=== PATIENT | male | born 1930 | race Two or more races ===

== ENCOUNTER 2017-02-05 14:30 | Outpatient (CLI) | payer MEDICARE | END 2017-02-05 23:59 | disposition home health service (06) | LOC: WOU 14:30 | PROVIDERS: ATTEND Surgery | DX: L89.314 Pressure ulcer of right buttock, stage 4 (principal); D64.9 Anemia, unspecified; I48.91 Unspecified atrial fibrillation; Z79.02 Long term (current) use of antithrombotics/antiplatelets; Z79.899 Other long term (current) drug therapy; Z85.51 Personal history of malignant neoplasm of bladder; Z87.891 Personal history of nicotine dependence; F03.90 Unspecified dementia, unspecified severity, without behavioral disturbance, psychotic disturbance, mood disturbance, and anxiety; Z90.79 Acquired absence of other genital organ(s); Z90.6 Acquired absence of other parts of urinary tract; Z93.6 Other artificial openings of urinary tract status; I25.10 Atherosclerotic heart disease of native coronary artery without angina pectoris | CPT/HCPCS: 11044; 87070; 87075; 87186; A6402; A6407 ==

== ENCOUNTER 2017-02-26 15:00 | Outpatient (CLI) | payer MEDICARE | END 2017-02-26 23:59 | disposition home health service (06) | LOC: WOU 15:00 | PROVIDERS: ATTEND Surgery | DX: L89.314 Pressure ulcer of right buttock, stage 4 (principal); D64.9 Anemia, unspecified; Z85.51 Personal history of malignant neoplasm of bladder; Z87.891 Personal history of nicotine dependence; F03.90 Unspecified dementia, unspecified severity, without behavioral disturbance, psychotic disturbance, mood disturbance, and anxiety; Z90.79 Acquired absence of other genital organ(s); Z90.6 Acquired absence of other parts of urinary tract; I25.10 Atherosclerotic heart disease of native coronary artery without angina pectoris; Z79.82 Long term (current) use of aspirin; Z79.899 Other long term (current) drug therapy | CPT/HCPCS: 11044; A6402; A6407 ==